=== PATIENT | male | born 1970 | race Caucasian/White ===

== ENCOUNTER 2018-04-13 08:42 | Emergency (ER) | payer SELFPAY ==
[2018-04-13] MEDS ORDERED: cephALEXin 250 MG CAPSULE PO STA (10:55)
[2018-04-13] MEDS ORDERED: BACITRACIN OINT TOP STA (10:55)
[2018-04-13] MEDS ORDERED: IBUPROFEN 400 MG TABLET PO STA (10:55)
--- NOTE | 2018-04-13 11:17 | ED Physician Documentation ---
History of Present Illness - Stated complaint Stated Complaint: ELBOW PX - Chief complaint Chief Complaint: Ext Problem - Additonal information Additional information: hx from pt 48 male [place] a few days ago and suffered lac to R posterior elbow swollen rad and painful he is not sure if infected or broken last tdap ? no hx MRSA otherwise healthy Review of Systems Constitutional: denies: Fever, Chills Skin: reports: Laceration (s) Musculoskeletal: reports: Joint pain PD PAST MEDICAL HISTORY - Past Medical History Past Medical History: No Cardiovascular: None Respiratory: None Endocrine/Autoimmune: None GI: None : None HEENT: None Psych: None Musculoskeletal: None Derm: None - Past Surgical History Past Surgical History: No - Present Medications Home Medications: Ambulatory Orders Medication Instructions Recorded Confirmed Cephalexin [Keflex] 500 mg PO Q6H #28 capsule 04/13/18 Ibuprofen [Motrin] 400 mg PO Q6H PRN #30 tablet 04/13/18 - Allergies Allergies/Adverse Reactions: Allergies Allergy/AdvReac Type Severity Reaction Status Date / Time No Known Drug Allergies Allergy Verified 04/13/18 08:58 - Social History Does the pt smoke?: No Smoking Status: Never smoker - POLST Patient has POLST: No PD ED PE NORMAL - Vitals Vital signs reviewed: Yes - Cardiac Cardiac: RRR - Respiratory Respiratory: No respiratory distress, Clear bilaterally - Extremities Extremities: Other (R elbow with healed over lac to olecranon region and bursal swelling and erythema with some surroundign cellulitis, able to range elbow so doubt septic jt, MSV intact) Results - Vitals Vitals: Vital Signs - 24 hr 04/13/18 04/13/18 08:55 12:04 Temperature 36.5 C 36.8 C Heart Rate 65 63 Respiratory 16 18 Rate Blood Pressure 141/79 H 134/84 H O2 Saturation 98 97 Oxygen O2 Source Room air PD MEDICAL DECISION MAKING - Sepsis Event Vital Signs: Vital Signs - 24 hr 04/13/18 04/13/18 08:55 12:04 Temperature 36.5 C 36.8 C Heart Rate 65 63 Respiratory 16 18 Rate Blood Pressure 141/79 H 134/84 H O2 Saturation 98 97 Oxygen O2 Source Room air Departure - Departure Disposition: 01 Home, Self Care Clinical Impression: Infected laceration Cellulitis Qualifiers: Site of cellulitis: extremity Site of cellulitis of extremity: upper extremity Laterality: right Qualified Code(s): L03.113 - Cellulitis of right upper limb Condition: Good Instructions: ED Infec Skin Cellulitis Prescriptions: Cephalexin [Keflex] 500 mg PO Q6H #28 capsule Ibuprofen [Motrin] 400 mg PO Q6H PRN #30 tablet PRN Reason: Pain Comments: The xray was fine - no fracture Your tetanus was updated - please your PMD know to updated your records Take the antibiotic as prescribed Apply warm compresses three times daily Motrin as neeed for pain and swelling. If not improving within 3 days of antibiotics should be seen again - occasionally the bursa over the elbow has to be drained for the infection to clear up
--- NOTE | 2018-04-13 11:20 | XRAY Report ---
Procedure Date: 04/13/2018 Accession Number: [id number] / [id number] Procedure: XR - Elbow 3 View RT CPT Code: FULL RESULT: EXAM: RIGHT ELBOW RADIOGRAPHY EXAM DATE: 04/13/2018 10:14 AM. CLINICAL HISTORY: Fell on elbow. COMPARISON: None. TECHNIQUE: 3 views. FINDINGS: Bones: Normal. No fractures or bone lesions. Joints: Normal. No effusion. No subluxation. Soft Tissues: Prominent soft tissue swelling. IMPRESSION: Soft tissue swelling. RADIA
[2018-04-13 12:05] VITALS: BP 134/84
== END 2018-04-13 12:18 | disposition home or self-care (01) ==
LOC: ED 08:42
DX: S51.011A Laceration without foreign body of right elbow, initial encounter (principal); L03.113 Cellulitis of right upper limb; Y93.E1 Activity, personal bathing and showering; W18.30XA Fall on same level, unspecified, initial encounter
CPT/HCPCS: 73080; 99283; A9270

== ENCOUNTER 2018-04-15 13:14 | Emergency (ER) | payer SELFPAY ==
[2018-04-15 13:19] VITALS: BP 152/80
[2018-04-15] MEDS ORDERED: BUFFERED LIDOCAINE 10 ML SYRINGE SUBQ STA (13:43)
--- NOTE | 2018-04-15 13:45 | ED Physician Documentation ---
History of Present Illness - Stated complaint Stated Complaint: ELBOW PX - Chief complaint Chief Complaint: General - History obtained from History obtained from: Patient - History of Present Illness Timing: Other (Healthy 48-year-old gentleman who scraped his elbow 6 days ago. He was seen here 2 days ago and put on Keflex but continues to have pain and swelling and redness but no fevers.) Review of Systems Constitutional: denies: Fever, Chills Cardiac: denies: Chest pain / pressure, Palpitations Respiratory: denies: Dyspnea, Cough PD PAST MEDICAL HISTORY - Past Medical History Cardiovascular: None Respiratory: None Endocrine/Autoimmune: None GI: None : None HEENT: None Psych: None Musculoskeletal: None Derm: None - Past Surgical History Past Surgical History: No - Present Medications Home Medications: Ambulatory Orders Medication Instructions Recorded Confirmed Cephalexin [Keflex] 500 mg PO Q6H #28 capsule 04/13/18 Ibuprofen [Motrin] 400 mg PO Q6H PRN #30 tablet 04/13/18 Sulfamethoxazole/Trimethoprim 1 each PO BID 10 Days tablet 04/15/18 [Sulfamethoxazole-Tmp Ds Tablet] - Allergies Allergies/Adverse Reactions: Allergies Allergy/AdvReac Type Severity Reaction Status Date / Time No Known Drug Allergies Allergy Verified 04/15/18 13:18 - Social History Does the pt smoke?: No Smoking Status: Never smoker - POLST Patient has POLST: No PD ED PE NORMAL - Vitals Vital signs reviewed: Yes - General General: Alert and oriented X 3, No acute distress - Extremities Extremities: Other (He has what appears to be septic olecranon bursitis with a small scrape over the apex of the elbow but good range of motion. There is some cellulitis.) - Neuro Neuro: Alert and oriented X 3, Normal speech Results - Vitals Vitals: Vital Signs - 24 hr 04/15/18 13:16 Temperature 36.4 C L Heart Rate 73 Respiratory 20 Rate Blood Pressure 152/80 H O2 Saturation 97 Oxygen O2 Source Room air Procedures - Abscess I&D (location) R olecranon bursa Preparation: Betadine, Lidocaine 1%, With epi Incision: Incised with scalpel, Loculations broken, Packed (with 1/4 inch packing), Culture obtained Other: Pt tolerated well, Dressing applied, Antibiotic prescribed PD MEDICAL DECISION MAKING - ED course ED course: OF note he is flying to [facility] tomorrow, to contact him about culture data we will have to email him. - Sepsis Event Vital Signs: Vital Signs - 24 hr 04/15/18 13:16 Temperature 36.4 C L Heart Rate 73 Respiratory 20 Rate Blood Pressure 152/80 H O2 Saturation 97 Oxygen O2 Source Room air Departure - Departure Disposition: 01 Home, Self Care Clinical Impression: Olecranon bursitis of right elbow Condition: Good Record reviewed to determine appropriate education?: Yes Instructions: ED Bursitis Prescriptions: Sulfamethoxazole/Trimethoprim [Sulfamethoxazole-Tmp Ds Tablet] 1 each PO BID 10 Days tablet Comments: Your blood pressure was elevated today on check into the emergency department. This does not mean that you have hypertension, it is a common phenomenon to come to the emergency department and have elevated blood pressure. I recommend that you see your primary care physician within the week to have it rechecked when you are feeling better. Discharge Date/Time: 04/15/18 14:05
== END 2018-04-15 14:05 | disposition home or self-care (01) ==
LOC: ED 13:14
DX: M70.21 Olecranon bursitis, right elbow (principal); R03.0 Elevated blood-pressure reading, without diagnosis of hypertension
CPT/HCPCS: 10060; 87070; 87181; 87205; 99283